=== PATIENT | female | born 1990 | race Caucasian/White ===

== ENCOUNTER → 2016-10-17 | Outpatient (REF) | payer OTHER | LOC: M LAB REF 16:19 | PROVIDERS: ATTEND Physician Assistant | DX: R10.30 Lower abdominal pain, unspecified (principal) ==

== ENCOUNTER → 2016-12-11 | Outpatient (REF) | payer OTHER ==
[2016-12-11 12:24] LABS: ALBUMIN 4.2 GM/DL (3.2-5.2); ALBUMIN/GLOBULIN RATIO 1.14 (1.00-1.93); ALKALINE PHOSPHATASE 88 U/L (45-117); ALT/SGPT 35 U/L (12-78); ANION GAP 8 MEQ/L (8-16); AST/SGOT 32 U/L (15-37); BILIRUBIN,TOTAL 0.5 MG/DL (0.2-1.0); BLOOD UREA NITROGEN 13 MG/DL (7-18); CALCIUM LEVEL 8.9 MG/DL (8.5-10.1); CARBON DIOXIDE LEVEL 27 MEQ/L (21-32); CHLORIDE LEVEL 104 MEQ/L (98-107); CREATININE FOR GFR 0.77 MG/DL (0.55-1.02); GLOMERULAR FILTRATION RATE > 60.0 (>60); GLUCOSE, FASTING 84 MG/DL (70-105); HCG, SERUM QUANTITATIVE < 1.0 MIU/ML; POTASSIUM SERUM 4.1 MEQ/L (3.5-5.1); SODIUM LEVEL 139 MEQ/L (136-145); TOTAL PROTEIN 7.9 GM/DL (6.4-8.2)
== END ==
LOC: M SFHCPLAZ 09:50
PROVIDERS: ATTEND Family Medicine
DX: R10.30 Lower abdominal pain, unspecified (principal)

== ENCOUNTER → 2017-04-13 | Outpatient (REF) | payer OTHER | LOC: M SFHCPLAZ 13:31 | PROVIDERS: ATTEND Family Medicine | DX: N91.2 Amenorrhea, unspecified (principal) ==

== ENCOUNTER → 2017-04-15 | Outpatient (REF) | payer OTHER | LOC: M SFHCPLAZ 08:59 | PROVIDERS: ATTEND Family Medicine | DX: N91.2 Amenorrhea, unspecified (principal) ==

== ENCOUNTER → 2017-06-05 | Outpatient (REF) | payer OTHER ==
[2017-06-05 16:08] LABS: ESTRADIOL 336.4 PG/ML; LUTEINIZING HORMONE 13.7 mIU/mL; PROLACTIN 27.3 NG/ML
[2017-06-05 16:09] LABS: FOLLICLE STIMULATING HORMONE 3.5 mIU/mL
[2017-06-05 16:16] LABS: FREE T4 1.14 NG/DL (0.76-1.46); HCG, SERUM QUANTITATIVE < 1.0 MIU/ML
== END ==
LOC: M SFHCPLAZ 13:07
PROVIDERS: ATTEND Family Medicine
DX: N91.4 Secondary oligomenorrhea (principal)

== ENCOUNTER → 2017-10-08 | Outpatient (REF) | payer OTHER ==
[2017-10-08 12:53] LABS: INFLUENZA A AMPLIFICATION NEGATIVE (NEGATIVE); INFLUENZA B AMPLIFICATION NEGATIVE (NEGATIVE)
== END ==
LOC: M LAB REF 11:39
DX: J11.1 Influenza due to unidentified influenza virus with other respiratory manifestations (principal)

== ENCOUNTER → 2017-12-08 | Outpatient (REF) | payer OTHER ==
[2017-12-08 14:32] LABS: PROGESTERONE 0.5 NG/ML
[2017-12-08 14:33] LABS: FOLLICLE STIMULATING HORMONE 7.8 mIU/mL; LUTEINIZING HORMONE 8.6 mIU/mL
== END ==
LOC: M LABDRAWP 13:34
DX: N93.8 Other specified abnormal uterine and vaginal bleeding (principal)

== ENCOUNTER → 2017-12-11 | Outpatient (CLI) | payer OTHER ==
[~2017-12-11] MED LIST: ISOVUE-370 76% 100ML VIAL (Q9967) As Ordered
== END ==
LOC: M RADPRO 11:00
DX: N97.9 Female infertility, unspecified (principal)
CPT/HCPCS: 58340

== ENCOUNTER → 2018-03-29 | Outpatient (REF) | payer OTHER ==
[2018-03-29 15:58] LABS: HCG, SERUM QUANTITATIVE 601 MIU/ML
== END ==
LOC: M LAB REF 13:12
DX: Z32.01 Encounter for pregnancy test, result positive (principal)

== ENCOUNTER → 2018-03-31 | Outpatient (REF) | payer OTHER ==
[2018-03-31 13:58] LABS: HCG, SERUM QUANTITATIVE 1238 MIU/ML
== END ==
LOC: M LABDRAW1 12:03
DX: Z32.01 Encounter for pregnancy test, result positive (principal)

== ENCOUNTER → 2018-04-30 | Outpatient (REF) | payer OTHER ==
[2018-04-30 12:09] LABS: BASO % 0.4 % (0.0-1.0); EOS % 0.4 % (0.0-3.0); HEMATOCRIT 37.3 % (36.0-47.0); HEMOGLOBIN 12.8 g/dl (12.0-15.5); IMMATURE GRANULOCYTE % 0.7 % (0-3.0); LYMPH # 1.7 10^3/uL (1.5-6.5); LYMPH % 21.7 % (24.0-44.0); MEAN CORPUSCULAR HEMOGLOBIN 30.4 pg (27.0-33.0); MEAN CORPUSCULAR HGB CONC 34.3 g/dl (32.0-36.5); MEAN CORPUSCULAR VOLUME 88.6 fl (80.0-96.0); MONO # 0.8 10^3/uL (0.0-0.8); MONO % 9.8 % (0.0-5.0); NEUTROPHILS # 5.1 10^3/uL (1.8-7.7); PLATELET COUNT, AUTOMATED 329 10^3/uL (150-450); RED BLOOD COUNT 4.21 10^6/uL (4.00-5.40); RED CELL DISTRIBUTION WIDTH 12.3 % (11.5-14.5); WHITE BLOOD COUNT 7.6 10^3/uL (4.0-10.0)
[2018-04-30 13:56] LABS: HEPATITIS C VIRUS ABY INDEX 0.1 INDEX (<0.8)
[2018-04-30 13:56] LABS: HBsAg Prenatal NEGATIVE (NEGATIVE); HIV 1&2 SCREEN CENTAUR NEGATIVE (NEGATIVE); RUBELLA IgG QUALITATIVE IMMUNE (IMMUNE)
[2018-04-30 15:10] LABS: CHLAMYDIA DNA AMPLIFICATION NEGATIVE (NEGATIVE); GC DNA AMPLIFICATION NEGATIVE (NEGATIVE)
== END ==
LOC: M LABDRAWP 11:43
DX: Z34.81 Encounter for supervision of other normal pregnancy, first trimester (principal); Z3A.09 9 weeks gestation of pregnancy; Z36.89 Encounter for other specified antenatal screening

== ENCOUNTER → 2018-11-02 | Outpatient (REF) | payer OTHER, BC | LOC: M LAB REF 17:13 | PROVIDERS: ATTEND Advanced Practice Midwife | DX: Z34.83 Encounter for supervision of other normal pregnancy, third trimester (principal); Z3A.00 Weeks of gestation of pregnancy not specified ==

== ENCOUNTER 2018-12-01 12:05 | Inpatient (IN) | payer BC ==
[2018-12-01] VITALS (41 sets, daily range): BP systolic 111–162; BP diastolic 59–97
[~2018-12-01] VITALS: Ht 157.5 cm; Wt 82.6 kg
[2018-12-01] MEDS ORDERED: LR 1,000 ML IV SCH (12:20)
[2018-12-01] MEDS ORDERED: OXYTOCIN DRIP 30 UNITS in APPROPRIATE DILUENT 1 EA IV SCH ×2 (12:30→22:43)
[2018-12-01] MEDS ORDERED: PRENTAB77 PO (13:09)
--- NOTE | 2018-12-01 14:02 | HPE ---
DATE OF ADMISSION: 12/01/2018 HISTORY: Larisa is a 28-year-old, 2, para 0-0-1-0, 40-1/7 weeks gestation, with an expected date of confinement (EDC) of 11/30/2018 based on last menstrual period and confirmed by first trimester ultrasound. She presents to labor and delivery today for induction of labor per consult with Dr. Renetta Prather. She does deny any regular painful contractions. She has noted some scant bloody show. Denies leakage of fluid and the fetus has been active. Her care was initiated in the first trimester at [facility]. course was complicated by an anatomy ultrasound done here locally that demonstrated potential for esophageal anomaly. She was seen at [facility] for a consult 07/19/2018 and underwent ultrasound that demonstrated no esophageal abnormality and no polyhydramnios. No further recommendations were advised. OBSTETRICAL HISTORY: March 2017, 6 week spontaneous miscarriage. OBSTETRIC LABS: O+. Antibody screen negative. Rubella immune. VDRL nonreactive. Urine culture with no growth. Hepatitis B surface antigen negative. HIV negative. Hepatitis C antibody nonreactive. Gonorrhea and chlamydia negative. She did decline genetic serum screening labs. Gestational diabetic screening normal at 138. Her GBS is negative. PAST MEDICAL HISTORY: Seasonal allergies. Abnormal Pap smear. Childhood varicella. SURGERIES: None. FAMILY HISTORY: Multiple sclerosis and skin cancer. SOCIAL HISTORY: The patient is . Her is at bedside and supportive. She is a nonsmoker. Denies alcohol and drug use. There is no history of sexually transmitted infections. She denies history of abuse - physical, sexual and emotional. ALLERGIES: No known drug allergies. CURRENT MEDICATIONS: vitamin. OBJECTIVE: Temperature 98.3, pulse 90, respiration 18 and BP 137/75. She is alert and oriented times three, in no apparent distress. She is smiling and talkative. The heart rate is 135 with moderate variability, positive accelerations, no decelerations. There is no pattern of regular contractions. Her abdomen is gravid, cephalic presentation. Estimated weight 7-1/2 pounds. Sterile vaginal exam is 3 cm dilated, 80% effaced, -2 station, mid position, soft, with positive bloody show. ASSESSMENT: Intrauterine at 40-1/7 weeks. heart rate category one. PLAN: Admit the patient to labor and delivery. Routine labs. Out of bed ad norma. Clear liquid diet at this time. Start IV Pitocin for labor induction. I did review risks, benefits and alternatives with the patient and her . All of their questions have been answered. She has been verbally consented for emergency surgery and blood products as needed. I do anticipate and active labor and a spontaneous vaginal delivery. MTDD
[2018-12-01 14:03] LABS: HEMATOCRIT 38.1 % (36.0-47.0); MEAN CORPUSCULAR HEMOGLOBIN 30.7 pg (27.0-33.0); MEAN CORPUSCULAR HGB CONC 34.1 g/dl (32.0-36.5); MEAN CORPUSCULAR VOLUME 89.9 fl (80.0-96.0); PLATELET COUNT, AUTOMATED 288 10^3/uL (150-450); RED BLOOD COUNT 4.24 10^6/uL (4.00-5.40); WHITE BLOOD COUNT 10.7 10^3/uL (4.0-10.0)
[2018-12-01] MEDS ORDERED: LR 1,000 ML IV ONE (16:45)
[2018-12-01] MEDS ORDERED: FENTANYL 2MCG/ML ROPIVACAINE 0.2% IN 0.9% NACL 100ML IVBAG As Ordered ONE (16:45)
[2018-12-01] MEDS ORDERED: EPIDURAL/PCA KEYS XX PRN (18:45)
[2018-12-01] MEDS ORDERED: EPIDURAL COMMENT XX SCH (18:45)
[2018-12-01] MEDS ORDERED: NALOXONE INJ 0.4 MG/1 ML VIAL (J2310) IV PRN (18:45)
[2018-12-01] MEDS ORDERED: FENTANYL/ROPIVACAINE/NACL BAG 100 ML EPIDURAL SCH (18:45)
[2018-12-01] MEDS ORDERED: diphenhydrAMINE INJ 50MG/ML VIAL (J1200) IV PRN (18:45)
[2018-12-01] MEDS ORDERED: REFRIGERATOR IV KEYS XX PRN (18:45)
[2018-12-01] MEDS ORDERED: ONDANSETRON 4MG/2ML VIAL (J2405) IV PRN (18:45)
[2018-12-01] MEDS ORDERED: ePHEDrine SULFATE 25 MG/5 ML(5MG/ML) SYRINGE IV PRN (18:45)
[2018-12-01] MEDS ORDERED: LACTATED RINGER'S 1000 ML IV PRN (18:45)
[2018-12-01] MEDS ORDERED: DIBUCAINE 1% OINTMENT 30GM TOP PRN (22:45)
[2018-12-01] MEDS ORDERED: METHYLERGONOVINE MALEATE 0.2 MG TAB PO PRN (22:45)
[2018-12-01] MEDS ORDERED: RHOGAM 300 MCG (1500 IU) INJ (J2790) IM SCH (22:45)
[2018-12-01] MEDS ORDERED: MEASLES,MUMPS,RUBELLA VACCINE INJ (MMR-II) (90707) SC SCH (22:45)
[2018-12-01] MEDS ORDERED: ANUSOL HC CREAM 30GM TOP PRN (22:45)
--- NOTE | 2018-12-01 23:15 | DN ---
DATE OF DELIVERY: 12/01/2018 Larisa is a 28-year-old 2, para 1-0-1-1 now who was admitted to labor and delivery for induction of labor. IV Pitocin was used and labor did ensue. She utilized an epidural for labor coping. She reached full dilation at 1933 hours. She had assisted rupture of membranes for a large amount of clear odorless fluid at 2034 hours. She pushed to a normal spontaneous vaginal delivery following an hour of passive descent to a live female infant in occiput anterior (OA) position with restitution to left occiput transverse (LOT) position at 2158 hours. There was bilateral compound hands. The shoulders delivered spontaneously and the corpus immediately followed. was placed on maternal abdomen crying and active. Her mouth and nares were bulb suctioned. The cord was clamped times two once pulsations ceased and cut by the father of the baby under my direction. Spontaneous expulsion of an intact placenta with three-vessel cord by Ann mechanism was at 2203 hours. Uterine hemostasis achieved with IV Pitocin rapid infusion and uterine fundal massage. Estimated blood loss 300 mL. Perineum and vagina inspected, noted to have bilateral sulcus lacerations as well as a second-degree midline laceration. The lacerations were repaired under epidural anesthesia in the usual fashion. Girard female weighed 6 pounds 2 ounces, 2770 grams, eight and nine. Mom is going to breastfeed her daughter and the family have named Myla. At the close of delivery lap counts, needle counts and instrument counts were correct and verified.
[2018-12-01] MEDS: ACETAMINOPHEN 500 MG TAB PO PRN (23:30)
[2018-12-01] MEDS: IBUPROFEN 800 MG TAB PO PRN (23:30)
[2018-12-02] MEDS: ACETAMINOPHEN 500 MG TAB PO PRN ×4 (00:25→20:26)
[2018-12-02] MEDS: IBUPROFEN 800 MG TAB PO PRN ×3 (00:25→16:53)
[2018-12-02 01:03] VITALS: BP 132/65
[2018-12-02 06:22] VITALS: BP 119/72
[2018-12-02] MEDS: DOCUSATE SODIUM 100 MG CAP PO SCH ×2 (07:40→20:26)
[2018-12-02] MEDS: PRENATAL VITAMINS CHEWABLE TABLET PO SCH (07:40)
[2018-12-02 09:48] VITALS: BP 132/48
[2018-12-02 18:00] VITALS: BP 132/64
[2018-12-03] MEDS: IBUPROFEN 800 MG TAB PO PRN (04:58)
[2018-12-03 06:00] VITALS: BP 123/60
[2018-12-03] MEDS: PRENATAL VITAMINS CHEWABLE TABLET PO SCH (08:36)
[2018-12-03] MEDS: DOCUSATE SODIUM 100 MG CAP PO SCH (08:36)
[2018-12-03] MEDS ORDERED: COLA100C5 PO (11:09)
[2018-12-03] MEDS ORDERED: ACET-683 PO (11:09)
[2018-12-03] MEDS ORDERED: IBUP-1022 PO (11:09)
== END 2018-12-03 12:25 | disposition home or self-care (01) | DRG 560 ==
LOC: M LDI 12:05 → M OBS 12-02 01:03
PROVIDERS: ADMIT Advanced Practice Midwife; ATTEND Advanced Practice Midwife
PROC: 10E0XZZ Delivery of Products of Conception, External Approach (ICD-10-PCS; principal; 2018-12-01)
PROC: 0KQM0ZZ Repair Perineum Muscle, Open Approach (ICD-10-PCS; 2018-12-01)
PROC: 10907ZC Drainage of Amniotic Fluid, Therapeutic from Products of Conception, Via Natural or Artificial Opening (ICD-10-PCS; 2018-12-01)
DX: O48.0 Post-term pregnancy (principal); O32.6XX0 Maternal care for compound presentation, not applicable or unspecified; Z37.0 Single live birth; Z3A.40 40 weeks gestation of pregnancy; O70.1 Second degree perineal laceration during delivery

== ENCOUNTER → 2019-03-08 | Outpatient (REF) | payer BC ==
[~2019-03-08] MED LIST changes: +ACET-683 PO; +COLA100C5 PO; +IBUP-1022 PO; -ISOVUE-370 76% 100ML VIAL (Q9967) As Ordered; +PRENTAB77 PO
== END ==
LOC: M LAB REF 17:07
PROVIDERS: ATTEND Advanced Practice Midwife
DX: Z12.4 Encounter for screening for malignant neoplasm of cervix (principal)

== ENCOUNTER → 2020-04-24 | Outpatient (REF) | payer BC ==
[2020-04-24 16:30] LABS: BASO % 0.4 % (0.0-1.0); EOS % 0.5 % (0.0-3.0); HEMATOCRIT 41.8 % (36.0-47.0); HEMOGLOBIN 14.1 g/dl (12.0-15.5); LYMPH # 1.9 10^3/uL (1.5-5.0); LYMPH % 23.2 % (24.0-44.0); MEAN CORPUSCULAR HEMOGLOBIN 30.3 pg (27.0-33.0); MEAN CORPUSCULAR HGB CONC 33.7 g/dl (32.0-36.5); MEAN CORPUSCULAR VOLUME 89.9 fl (80.0-96.0); MONO # 0.7 10^3/uL (0.0-0.8); NEUTROPHILS # 5.5 10^3/uL (1.5-8.5); NEUTROPHILS % 67.5 % (36.0-66.0); PLATELET COUNT, AUTOMATED 358 10^3/uL (150-450); RED BLOOD COUNT 4.65 10^6/uL (4.00-5.40); WHITE BLOOD COUNT 8.1 10^3/uL (4.0-10.0)
[2020-04-24 17:44] LABS: HEPATITIS C VIRUS ABY INDEX 0.1 INDEX (<0.8); HIV 1&2 SCREEN CENTAUR NEGATIVE (NEGATIVE)
== END ==
LOC: M PLALAB 09:55
PROVIDERS: ATTEND Advanced Practice Midwife
DX: Z34.91 Encounter for supervision of normal pregnancy, unspecified, first trimester (principal); Z3A.00 Weeks of gestation of pregnancy not specified

== ENCOUNTER → 2020-05-08 | Outpatient (REF) | payer BC, OTHER | LOC: M SFHCWAGY 13:23 | PROVIDERS: ATTEND Advanced Practice Midwife | DX: Z34.81 Encounter for supervision of other normal pregnancy, first trimester (principal); Z3A.00 Weeks of gestation of pregnancy not specified ==

== ENCOUNTER → 2020-07-03 | Outpatient (CLI) | payer BC ==
--- NOTE | 2020-07-03 11:03 | REP ---
INDICATION: ANATOMY COMPARISON: None. TECHNIQUE: Transabdominal obstetrical ultrasound with color Doppler evaluation. FINDINGS: Examination demonstrates a single live intrauterine in cephalic presentation. motion is identified by technologist. Placenta is noted posterior and grade 1 without evidence for placenta previa or abruption. Amniotic fluid volume is normal. Cervix measures 3.1 cm in length and appears closed.. Gestational age by current measurements 18 weeks 3 days with MARISSA 12/01/2020. FHR equals 155 beats per minute. BPD: 4.0 cm eighteen weeks 1 day HC: 15.6 cm 18 weeks 4 days AC: 14.1 cm 19 weeks 3 days FL: 2.6 cm 17 weeks 6 days HL: 2.6 cm 18 weeks 2 days HC/AC: 1.11 Estimated weight 252 grams (63rdpercentile based on age by current measurements). Anatomical assessment demonstrates normal structures including cranium, choroid plexus, cavum, cerebellum/posterior fossa, facial features, lungs, diaphragm, stomach, cord insertion/three-vessel cord, kidneys/bladder, spine, and extremities. IMPRESSION: 1. Single live intrauterine in cephalic presentation demonstrating appropriate estimated weight compared to current measurement. 2. Limited evaluation of the heart/ventricular outflow tracts. Remainder of the anatomical assessment is complete and normal. <Electronically signed by Judson Mcguire > 07/03/20 1100
== END ==
LOC: M WHC 09:14
PROVIDERS: ATTEND Advanced Practice Midwife
DX: Z34.92 Encounter for supervision of normal pregnancy, unspecified, second trimester (principal); Z36.89 Encounter for other specified antenatal screening; Z3A.18 18 weeks gestation of pregnancy

== ENCOUNTER → 2020-08-07 | Outpatient (CLI) | payer BC ==
--- NOTE | 2020-08-07 09:07 | REP ---
INDICATION: FOLLOW UP ANATOMY COMPARISON: 07/03/2020 TECHNIQUE: Transabdominal obstetrical ultrasound with color Doppler evaluation. FINDINGS: Examination demonstrates a single live intrauterine in cephalic presentation. motion is identified by technologist. Placenta is noted posterior and grade 1 without evidence for placenta previa or abruption. Amniotic fluid volume is normal. Cervix measures 3.7 cm in length and appears closed.. Gestational age by LMP 24 weeks 5 days with MARISSA 11/22/2020. Gestational age by current measurements 23 weeks 5 days with MARISSA 11/29/2020. FHR equals 156 beats per minute. BPD: 5.8 cm 23 weeks 6 days HC: 21.4 cm 23 weeks 3 days AC: 19.4 cm 24 weeks 1 day FL: 4.1 cm 23 weeks 3 days HL: 3.9 cm 23 weeks 5 days HC/AC: 1.10 Estimated weight 628 grams (11thpercentile). Anatomical assessment demonstrates normal structures including cranium, four-chamber heart/ventricular outflow tracts, diaphragm, stomach, three-vessel cord, and kidneys/bladder. IMPRESSION: Single live intrauterine in cephalic presentation demonstrating appropriate interval growth. In conjunction with prior examination anatomical assessment is complete and normal. <Electronically signed by Judson Mcguire > 08/07/20 [id number]
== END ==
LOC: M WHC 08:19
PROVIDERS: ATTEND Advanced Practice Midwife
DX: Z34.82 Encounter for supervision of other normal pregnancy, second trimester (principal)

== ENCOUNTER → 2020-08-22 | Outpatient (REF) | payer BC ==
[2020-08-22 10:30] LABS: HEMATOCRIT 37.5 % (36.0-47.0); HEMOGLOBIN 12.1 g/dl (12.0-15.5); MEAN CORPUSCULAR HEMOGLOBIN 29.5 pg (27.0-33.0); MEAN CORPUSCULAR HGB CONC 32.3 g/dl (32.0-36.5); MEAN CORPUSCULAR VOLUME 91.5 fl (80.0-96.0); PLATELET COUNT, AUTOMATED 277 10^3/uL (150-450); WHITE BLOOD COUNT 9.6 10^3/uL (4.0-10.0)
== END ==
LOC: M PLALAB 08:13
PROVIDERS: ATTEND Advanced Practice Midwife
DX: Z34.82 Encounter for supervision of other normal pregnancy, second trimester (principal)

== ENCOUNTER → 2020-09-04 | Outpatient (CLI) | payer BC ==
--- NOTE | 2020-09-04 08:46 | REP ---
INDICATION: GROWTH COMPARISON: 08/07/2020 TECHNIQUE: Transabdominal obstetrical ultrasound with color Doppler evaluation. FINDINGS: Examination demonstrates a single live intrauterine in cephalic presentation. motion is identified by technologist. Placenta is noted posterior and grade 1 without evidence for placenta previa or abruption. Amniotic fluid volume is normal. Cervix measures 3.0 cm in length and appears closed.. Gestational age by LMP 28 weeks 5 days with MARISSA 11/22/2020. Gestational age by current measurements 27 weeks 5 days with MARISSA 11/29/2020. FHR equals 138 beats per minute. BPD: 7.1 cm 28 weeks 4 days HC: 26.2 cm 20 weeks 3 days AC: 23.5 cm 27 weeks 6 days FL: 5.0 cm 26 weeks 6 days HL: 4.5 cm is 26 weeks 5 days HC/AC: 1.11 Estimated weight 1099 grams (less than 3rdpercentile). IMPRESSION: Single live advanced gestation in cephalic presentation. Estimated weight for age is less than 3rd percentile. <Electronically signed by Judson Mcguire > 09/04/20 0844
== END ==
LOC: M WHC 07:52
PROVIDERS: ATTEND Obstetrics & Gynecology
DX: O26.849 Uterine size-date discrepancy, unspecified trimester (principal)

== ENCOUNTER → 2020-09-12 | Outpatient (CLI) | payer BC ==
--- NOTE | 2020-09-12 11:38 | REP ---
INDICATION: IUGR, BPP W/CORD DOPPLERS. Poor growth. COMPARISON: September 04, 2020.. TECHNIQUE: Transabdominal obstetric sonography. FINDINGS: Limited Ob sonography is performed. Viable single intrauterine gestation is seen in the cephalic lie. The placenta is posterior grade 1 without evidence of previa. Amniotic fluid is subjectively normal. TARAH is normal at 12.6 cm. heart rate is recorded at 130 beats per minute. Biophysical profile score is 8 out of a possible 8. SD ratio in the umbilical cord artery by Doppler is normal at 3.79. Closed cervical length is measured transabdominally at 3.5 cm. IMPRESSION: Viable single intrauterine gestation. Limited obstetric sonography as above. Normal biophysical profile. <Electronically signed by Bijan Schultz > 09/12/20 [id number]
== END ==
LOC: M WHC 10:17
PROVIDERS: ATTEND Advanced Practice Midwife
DX: O36.5930 Maternal care for other known or suspected poor fetal growth, third trimester, not applicable or unspecified (principal); Z3A.00 Weeks of gestation of pregnancy not specified

== ENCOUNTER → 2020-09-18 | Outpatient (CLI) | payer BC ==
--- NOTE | 2020-09-18 13:36 | REP ---
INDICATION: GROWTH/BPP/CORD DOPPLERS COMPARISON: 09/12/2020 TECHNIQUE: Transabdominal obstetrical ultrasound with color Doppler evaluation. FINDINGS: Examination demonstrates a single live intrauterine in cephalic presentation. motion is identified by technologist. Placenta is noted posterior and grade 1 without evidence for placenta previa or abruption. Amniotic fluid volume is normal. Cervix measures 3.1 cm in length and appears closed.. Gestational age by LMP 30 weeks 5 days with MARISSA 11/22/2020. Gestational age by current measurements 20 on weeks 1 day with MARISSA 12/03/2020. FHR equals 150 beats per minute. BPD: 7.2 cm 28 weeks 6 days HC: 27.2 cm 29 weeks 5 days AC: 25.5 cm 29 weeks 5 days FL: 5.4 cm 28 weeks 5 days HL: 4.9 cm 28 weeks 3 days HC/AC: 1.07 Estimated weight 1371 grams (less than 3rd percentile). TARAH: 14.2 cm Biophysical profile score: 8/8 Umbilical artery 1 SD ratio: 2.97 (1.92-4.02) Umbilical artery 2 SD ratio: 3.55 IMPRESSION: Single live intrauterine in cephalic presentation. Estimated weight is less than expected. Biophysical profile score and amniotic fluid index are normal. <Electronically signed by Judson Mcguire > 09/18/20 [id number]
== END ==
LOC: M WHC 08:25
PROVIDERS: ATTEND Advanced Practice Midwife
DX: O36.5930 Maternal care for other known or suspected poor fetal growth, third trimester, not applicable or unspecified (principal); Z3A.30 30 weeks gestation of pregnancy

== ENCOUNTER → 2020-10-05 | Outpatient (CLI) | payer BC | LOC: M WHC 08:32 | PROVIDERS: ATTEND Obstetrics & Gynecology | DX: O26.893 Other specified pregnancy related conditions, third trimester (principal); Z3A.33 33 weeks gestation of pregnancy ==

== ENCOUNTER → 2020-10-22 | Outpatient (REF) | payer BC | LOC: M SFHCWAGY 13:54 | PROVIDERS: ATTEND Obstetrics & Gynecology | DX: O36.5930 Maternal care for other known or suspected poor fetal growth, third trimester, not applicable or unspecified (principal) ==

== ENCOUNTER 2020-11-15 18:17 | Inpatient (IN) | payer BC ==
[~2020-11-15] VITALS: Ht 157.5 cm; Wt 80.4 kg
[2020-11-15 18:49] VITALS: BP 108/64
[2020-11-15 20:05] LABS: HEMATOCRIT 36.8 % (36.0-47.0); HEMOGLOBIN 12.3 g/dl (12.0-15.5); MEAN CORPUSCULAR HEMOGLOBIN 29.6 pg (27.0-33.0); MEAN CORPUSCULAR HGB CONC 33.4 g/dl (32.0-36.5); MEAN CORPUSCULAR VOLUME 88.7 fl (80.0-96.0); PLATELET COUNT, AUTOMATED 257 10^3/uL (150-450); RED BLOOD COUNT 4.15 10^6/uL (4.00-5.40); WHITE BLOOD COUNT 8.8 10^3/uL (4.0-10.0)
[2020-11-15 20:17] VITALS: BP 119/71
[2020-11-15] MEDS ORDERED: LACTATED RINGER'S 1000 ML IV STA (21:14)
[2020-11-15] MEDS ORDERED: LR 1,000 ML IV SCH (21:14)
[2020-11-15] MEDS ORDERED: miSOPROStol 50MCG 1/2 TABLET PV ONE (21:15)
[2020-11-15] MEDS ORDERED: BUTORPHANOL 2 MG/ML INJ (J0595) IV PRN (21:15)
[2020-11-15] MEDS ORDERED: PROMETHAZINE INJ 25 MG/ML VIAL (J2550) IV PRN (21:15)
[2020-11-15 21:30] VITALS: BP 116/71
--- NOTE | 2020-11-15 21:40 | HPEPDOC ---
Obstetrical History & Physical General Date of Admission Nov 15, 2020 at 18:17 History of Present Illness Larisa is a 30yo with SIUP at 39w0d by lmp presenting for scheduled elective IOL at term. Good FM. No VB/LOF/regular ctx. Chief Complaint: Induction of labor Information Provided By: Patient Care Care: Good Care Dating Final EDC: Nov 22, 2020 Final EDC by: LMP Antepartum Course Diagnos(e)s Was monitored for growth restriction <3%ile for a time, but subsequent growth scans resolved the IUGR and most recently on 10/23 was 26%ile Past Medical History Past Obstetrical History : Past Obstetrical History: Multigravida (11/2018 at 40wk 6lb2oz F, 2018 sab) Past Medical History Medical History benign. hospitalized in 1999 for pneumonia/mono Surgical History: [place] teeth Family History Significant Family History: Cancer (breast cancer paternal GM, melanoma father), Hypertension (father), Other (mother has MS) Social History Marital Status: Family situation: Spouse/partner home Psychosocial History: No pertinent psych hx * Smoker: non-smoker Alcohol: Denies Drugs: denies Imunizations Tdap status: current Influenza Status: current Allergies Coded Allergies: No Known Allergies (Verified , 03/06/09) Medications Scheduled Docusate Sodium (Colace) 100 Mg Capsule, 100 MG PO BID Pnv,Calcium 72/Iron/Folic Acid ( Plus Tablet) 1 Each Tablet, 1 TAB PO DA EMILIANO Physical Examination Physical Examination GENERAL: Alert and oriented times three. ABDOMEN: Gravid and non-tender to touch. FETUS: Is vertex (VTX) by sterile vaginal examination (SVE) EXTREMITIES: No edema BLE Vital Signs/I&O Vital Signs Date Time Temp Pulse Resp B/P (MAP) Pulse Ox O2 Delivery O2 Flow Rate FiO2 11/15/20 20:17 98.4 80 16 119/71 (87) Laboratory Data 24H LABS Laboratory Tests 2 11/15/20 18:29: Serology Scanned Report Hepatitis B Testing 11/15/20 19:48: Nucleated Red Blood Cells % (auto) 0.0, Syphilis Serology NONREACTIVE CBC/BMP Laboratory Tests 11/15/20 19:48 Pertinent Laboratoy Data Blood Type: O+ RBC Antibody Screen: Negative HIV: Negative Hepatitis B: Negative Hepatitis C: Negative Rapid Plasma Reagin: Nonreactive Rubella: Immune Chlamydia/Gonorrhea: Negative Group B Streptococcus: Negative Glucose Tolerance Test: 98 Anatomy Ultrasound Ultrasound Date: Jul 03, 2020 Placenta Location: Posterior Normal Anatomy: Yes Placenta Previa: No Other Ultrasounds 08/07/20 missing views obtained complete and wnl 11%ile. 10/23: 26%ile Steroid Therapy Steroid Therapy: No Vaginal Examination Dilation: 2cm Effacement: other (thick) Station: -2 Cervical Consistency: Medium Cervical Position: Middle Presentation: Cephalic presentation Assessment Heart Rate (FHR): 150 Variability: Moderate Accelerations: Positive Decelerations: None Tocometer Contractions: Yes Frequency: irregular Strength: palpated as mild Assessment/Plan Assessment Larisa is a 30yo with SIUP at 39w0d by lmp presenting for scheduled elective IOL at term. Vitals wnl, Cat I FHRT. Cephalic by SCE. 2/thick/-2. Love cervical bulb placed with 40cc NS and 50mcg PV cytotec placed. GBS neg. PMhx and PNC significant for: Was monitored for growth restriction <3%ile for a time, but subsequent growth scans resolved the IUGR and most recently on 10/23 was 26%ile Plan Admit and orient. Loading Machine Operator and consent. Diet: regular until regular/painful ctx then clear liquids Group B Streptococcus (GBS) negative Labs and intravenous (IV) per unit protocol. Counseled on love bulb, cytotec, Pitocin and induction of labor (IOL). Lactated Ringers (LR): Bolus 800 mL, then at 125 mL/hr in anticipation of epidural (saline lock prior). Anticipate normal spontaneous delivery () IV stadol/phenergan in latent labor if desired, epidural in active labor if desired MD Mihaela Gibson Katrina D MD Nov 15, 2020 21:23
[2020-11-15 23:35] VITALS: BP 103/53
[2020-11-16] VITALS (31 sets, daily range): BP systolic 87–137; BP diastolic 45–77
[2020-11-16] MEDS ORDERED: miSOPROStol 50MCG 1/2 TABLET PO SCH (01:00)
[2020-11-16] MEDS ORDERED: FENTANYL 2MCG/ML ROPIVACAINE 0.2% IN 0.9% NACL 100ML IVBAG As Ordered ONE (02:00)
[2020-11-16] MEDS ORDERED: ePHEDrine SULFATE 25 MG/5 ML(5MG/ML) SYRINGE As Ordered ONE (03:12)
[2020-11-16] MEDS ORDERED: FENTANYL/ROPIVACAINE/NACL BAG 100 ML EPIDURAL SCH (03:15)
[2020-11-16] MEDS ORDERED: ONDANSETRON 4MG/2ML VIAL IV PRN (03:15)
[2020-11-16] MEDS ORDERED: diphenhydrAMINE 50MG/ML VIAL (J1200) IV PRN (03:15)
[2020-11-16] MEDS ORDERED: ePHEDrine SULFATE 25 MG/5 ML(5MG/ML) SYRINGE IV PRN (03:15)
[2020-11-16] MEDS ORDERED: EPIDURAL/PCA KEYS XX PRN (03:15)
[2020-11-16] MEDS ORDERED: LACTATED RINGER'S 1000 ML IV PRN (03:15)
[2020-11-16] MEDS ORDERED: EPIDURAL COMMENT XX SCH (03:15)
[2020-11-16] MEDS ORDERED: REFRIGERATOR IV KEYS XX PRN (03:15)
[2020-11-16] MEDS ORDERED: NALOXONE INJ 0.4MG/1ML VIAL (J2310 PER 1MG) IV PRN (03:15)
[2020-11-16] MEDS ORDERED: OXYTOCIN DRIP 30 UNITS in IV 1 EA IV SCH ×2 (04:15→07:41)
[2020-11-16] MEDS ORDERED: OXYTOCIN 30 UNITS IN 0.9% NaCl 500ML IV BAG (J2590) As Ordered ONE (04:20)
--- NOTE | 2020-11-16 05:24 | IPNPDOC ---
Text Note Date of Service The patient was seen on 11/16/20. NOTE Intrapartum Note Pt doing well, pain controlled with epidural. Vitals wnl, afebrile SCE: /-2, AROM with copious clear fluid Cat I FHRT with bl 140, +accels, -decels, mod guanaco [place]: ctx q2-3min Plan to titrate pitocin to adequate ctx pattern Continue to closely monitor Plan to recheck in 2-4hr or earlier as indicated Safe to proceed Carole Chairez MD VS,Ashley, I+O VS, Ashley I+O Laboratory Tests 11/15/20 19:48 Vital Signs Date Time Temp Pulse Resp B/P (MAP) Pulse Ox O2 Delivery O2 Flow Rate FiO2 11/16/20 04:12 88 95/45 (62) 11/15/20 23:35 98.8 16 aCrole Chairez MD Nov 16, 2020 05:24
[2020-11-16] MEDS ORDERED: MEASLES,MUMPS,RUBELLA VACCINE INJ (MMR-II) (90707) SC SCH (07:45)
[2020-11-16] MEDS ORDERED: IBUPROFEN 600MG TAB PO PRN (07:45)
[2020-11-16] MEDS ORDERED: ACETAMINOPHEN 500 MG TAB PO PRN (07:45)
[2020-11-16] MEDS ORDERED: DIBUCAINE 1% OINTMENT 30GM TOP PRN (07:45)
[2020-11-16] MEDS ORDERED: RHOGAM 300 MCG (1500 IU) INJ (J2790) IM SCH (07:45)
--- NOTE | 2020-11-16 07:54 | DNPDOC ---
[facility] Delivery Note Delivery Note DATE OF DELIVERY: 16 November 2020 PREDELIVERY DIAGNOSIS: 39w1d gestation and labor. POST DELIVERY DIAGNOSIS: Delivered. PROCEDURE: Spontaneous vaginal delivery WAVE GUIDE ASSEMBLER: Dr. Carole Chairez MD ANESTHESIA: epidural ESTIMATED BLOOD LOSS: 200 mL. FINDINGS: 6 pound 12 ounce (3050g) female , Score 8/9 DELIVERY SUMMARY: Larisa is a 30yo [id number] with SIUP s/p uncomplicated at 39w1d by lmp after undergoing elective IOL, delivering at 0651 on 16 November 2020. She was initially 2/thick/-2 and received a dose of 50mcg PV cytotec with love bulb, after AROM (clear), she progressed quickly to C/C/+1 at which point she began pushing. With a few sets of pushes, head delivered OA, restituted ISAC. Right anterior shoulder delivered followed by posterior shoulder and corpus. Spontaneous cry noted, infant vigorous, cord was short and she was placed on maternal abdomen. Nose and mouth bulb suctioned. Apgars 8/9. After 2 minutes, cord was clamped x2 and cut by FOB. Cord blood collected for MBT O pos. With fundal massage and traction on the cord, placenta delivered intact with 3 vessel centrally inserted cord. More uterine massage performed, fundus then firm at u-2cm. Inspection of perineum and vagina revealed 3a laceration (she has history of prior 3mll). The capsule of the anal sphincter was reinforced with O vicryl using figure of 8s and then the remaining 2mll was repaired in routine fashion using 3-0 vicryl suture. One stitch placed for charly-urethral abrasion. Total hemostasis and excellent reapproximation was noted. Infant and mom were doing well when I left the room. All counts correct x2. MD Mihaela Gibson Katrina D MD Nov 16, 2020 07:47
[2020-11-16] MEDS: PRENATAL VITAMINS CHEWABLE TABLET PO SCH (08:11)
[2020-11-16] MEDS: IBUPROFEN 800 MG TAB PO PRN ×2 (08:12→16:16)
[2020-11-16] MEDS: ACETAMINOPHEN TAB 650MG DOSE (2X325MG) PO PRN ×2 (13:17→20:02)
[2020-11-16] MEDS: DOCUSATE SODIUM 100MG CAPSULE PO PRN (13:20)
[2020-11-17] MEDS: IBUPROFEN 800 MG TAB PO PRN (00:10)
[2020-11-17 05:46] VITALS: BP 121/75
[2020-11-17] MEDS: DOCUSATE SODIUM 100MG CAPSULE PO PRN (08:19)
[2020-11-17] MEDS: PRENATAL VITAMINS CHEWABLE TABLET PO SCH (08:19)
[2020-11-17] MEDS: ACETAMINOPHEN TAB 650MG DOSE (2X325MG) PO PRN (08:20)
[2020-11-17 18:00] VITALS: BP 136/79
== END 2020-11-17 18:55 | disposition home or self-care (01) | DRG 542 ==
LOC: M LDI 18:17 → M OBS 11-16 10:00
PROVIDERS: ADMIT Obstetrics & Gynecology; ATTEND Obstetrics & Gynecology
PROC: 3E0P7GC Introduction of Other Therapeutic Substance into Female Reproductive, Via Natural or Artificial Opening (ICD-10-PCS; 2020-11-15)
PROC: 10E0XZZ Delivery of Products of Conception, External Approach (ICD-10-PCS; principal; 2020-11-16)
PROC: 0DQR0ZZ Repair Anal Sphincter, Open Approach (ICD-10-PCS; 2020-11-16)
PROC: 0KQM0ZZ Repair Perineum Muscle, Open Approach (ICD-10-PCS; 2020-11-16)
PROC: 10907ZC Drainage of Amniotic Fluid, Therapeutic from Products of Conception, Via Natural or Artificial Opening (ICD-10-PCS; 2020-11-16)
DX: O70.21 Third degree perineal laceration during delivery, IIIa (principal); Z3A.39 39 weeks gestation of pregnancy; O70.1 Second degree perineal laceration during delivery; Z37.0 Single live birth

== ENCOUNTER → 2021-11-19 | Outpatient (REF) | payer BC | LOC: M LAB REF 16:30 | PROVIDERS: ATTEND Physician Assistant Medical | DX: R78.71 Abnormal lead level in blood (principal) ==

== ENCOUNTER → 2021-11-22 | Outpatient (REF) | payer BC | LOC: M LAB REF 23:24 | PROVIDERS: ATTEND Physician Assistant Medical | DX: Z77.011 Contact with and (suspected) exposure to lead (principal) ==

== ENCOUNTER → 2022-07-16 | Outpatient (REF) | payer BC | LOC: M PLALAB 16:26 | PROVIDERS: ATTEND Nurse Practitioner Family | DX: Z12.4 Encounter for screening for malignant neoplasm of cervix (principal) | CPT/HCPCS: 87624; G0123 ==

== ENCOUNTER → 2022-09-22 | Outpatient (CLI) | payer BC ==
[~2022-09-22] MED LIST changes: +ELDE350C PO; +MAGN200T PO
[2022-09-22 11:12] LABS: ALBUMIN 4.2 G/DL (3.2-5.2); ALKALINE PHOSPHATASE 80 U/L (46-116); ALT/SGPT < 9 U/L (7.0-40); AST/SGOT 18 U/L (<34); BILIRUBIN,TOTAL 0.5 MG/DL (0.3-1.2); BLOOD UREA NITROGEN 16 MG/DL (9-23); CALCIUM LEVEL 9.7 MG/DL (8.5-10.1); CARBON DIOXIDE LEVEL 27 MMOL/L (20-31); CHLORIDE LEVEL 106 MMOL/L (98-107); CHOLESTEROL LEVEL 136 MG/DL (<200); CHOLESTEROL RISK RATIO 3.09 (<5); CREATININE FOR GFR 0.77 MG/DL (0.55-1.30); GLOMERULAR FILTRATION RATE > 60.0 (>60); GLUCOSE, FASTING 85 MG/DL (60-100); LDL CHOLESTEROL 73.4 MG/DL (<100); NON-HDL-C 92 MG/DL; POTASSIUM SERUM 4.9 MMOL/L (3.5-5.1); SODIUM LEVEL 139 MMOL/L (136-145); TOTAL PROTEIN 7.4 G/DL (5.7-8.2); TRIGLYCERIDES LEVEL 93 MG/DL (<150)
[2022-09-22 11:15] LABS: BASO # 0.1 10^3/uL (0.0-0.2); BASO % 0.6 % (0.0-1.0); EOS # 0.1 10^3/uL (0.0-0.5); EOS % 1.3 % (0.0-3.0); HEMATOCRIT 43.3 % (36.0-47.0); HEMOGLOBIN 14.1 g/dl (12.0-15.5); LYMPH # 1.7 10^3/uL (1.5-5.0); MEAN CORPUSCULAR HEMOGLOBIN 28.7 pg (27.0-33.0); MEAN CORPUSCULAR HGB CONC 32.6 g/dl (32.0-36.5); MEAN CORPUSCULAR VOLUME 88.2 fl (80.0-96.0); MONO # 0.9 10^3/uL (0.0-0.8); MONO % 9.2 % (2.0-8.0); NEUTROPHILS # 6.7 10^3/uL (1.5-8.5); NEUTROPHILS % 70.5 % (36.0-66.0); PLATELET COUNT, AUTOMATED 366 10^3/uL (150-450); RED BLOOD COUNT 4.91 10^6/uL (4.00-5.40); WHITE BLOOD COUNT 9.5 10^3/uL (4.0-10.0)
[2022-09-22 11:31] LABS: HEMOGLOBIN A1c 4.9 % (4.0-6.0)
== END ==
LOC: M PLALAB 08:23
PROVIDERS: ATTEND Registered Nurse
DX: R53.83 Other fatigue (principal)

== ENCOUNTER → 2022-09-22 | Outpatient (CLI) | payer BC | LOC: M LABSMTC 09:01 | PROVIDERS: ATTEND Anesthesiology | DX: Z01.812 Encounter for preprocedural laboratory examination (principal); Z11.52 Encounter for screening for COVID-19 ==

== ENCOUNTER 2022-09-26 12:44 | Day surgery (SDC) | payer BC ==
[~2022-09-26] VITALS: Ht 157.5 cm; Wt 65.3 kg
[2022-09-26] MEDS ORDERED: LR 1,000 ML IV SCH ×2 (13:10→19:25)
[2022-09-26 13:17] LABS: HEMOGLOBIN 13.8 g/dl (12.0-15.5); MEAN CORPUSCULAR HEMOGLOBIN 29.4 pg (27.0-33.0); MEAN CORPUSCULAR HGB CONC 33.7 g/dl (32.0-36.5); MEAN CORPUSCULAR VOLUME 87.4 fl (80.0-96.0); PLATELET COUNT, AUTOMATED 362 10^3/uL (150-450); RED BLOOD COUNT 4.69 10^6/uL (4.00-5.40)
[2022-09-26 14:01] LABS: HCG, SERUM QUALITATIVE NEGATIVE (NEGATIVE)
[2022-09-26] MEDS ORDERED: BUPIVACAINE HCL 0.25% 10ML VIAL As Ordered ONE (17:56)
[2022-09-26] MEDS ORDERED: SILVER NITRATE APPLICATOR (1 = QTY 10) As Ordered ONE (17:56)
[2022-09-26] MEDS ORDERED: LIDOCAINE 2% 100MG/5ML SDV (FOR ANES.) As Ordered ONE (18:43)
[2022-09-26] MEDS ORDERED: propofoL 200 MG/20 ML VIAL As Ordered ONE (18:43)
[2022-09-26] MEDS ORDERED: SUGAMMADEX SODIUM 500 MG/5 ML VIAL (BRIDION) As Ordered ONE (18:43)
[2022-09-26] MEDS ORDERED: ACETAMINOPHEN 1000MG 100ML IV BAG As Ordered ONE (18:43)
[2022-09-26] MEDS ORDERED: METOCLOPRAMIDE INJ 10MG/2ML VIAL As Ordered ONE (18:43)
[2022-09-26] MEDS ORDERED: ROCURONIUM BROMIDE 50MG/5ML VIAL As Ordered ONE (18:43)
[2022-09-26] MEDS ORDERED: KETOROLAC 60MG 2ML VIAL As Ordered ONE (18:43)
[2022-09-26] MEDS ORDERED: MIDAZOLAM INJ 2MG/2ML VIAL As Ordered ONE (18:43)
[2022-09-26] MEDS ORDERED: ONDANSETRON 4MG 2ML VIAL As Ordered ONE (18:43)
[2022-09-26] MEDS ORDERED: fentaNYL 100 MCG/2 ML INJECTION As Ordered ONE (18:43)
[2022-09-26] MEDS ORDERED: oxyCODONE 5MG TAB PO PRN (19:25)
[2022-09-26] MEDS ORDERED: ONDANSETRON 4MG 2ML VIAL IV PRN (19:25)
[2022-09-26] MEDS ORDERED: METOCLOPRAMIDE INJ 10MG/2ML VIAL IV PRN (19:25)
[2022-09-26] MEDS ORDERED: fentaNYL 100 MCG/2 ML INJECTION IV PRN (19:25)
[2022-09-26] MEDS ORDERED: IBUP80TA PO (19:40)
[2022-09-26] MEDS ORDERED: PERC5TAB12 PO (19:41)
[2022-09-26] MEDS ORDERED: COLA100C5 PO (19:42)
[2022-09-26] MEDS: HYDROMORPHONE HCL 0.5 MG/ 0.5 ML SYRINGE IV PRN ×4 (19:53→20:11)
[2022-09-26 21:16] VITALS: BP 125/78
== END 2022-09-26 21:25 | disposition home or self-care (01) ==
LOC: M SDC 12:44
PROVIDERS: ATTEND Obstetrics & Gynecology
DX: Z30.2 Encounter for sterilization (principal); K58.8 Other irritable bowel syndrome; K21.9 Gastro-esophageal reflux disease without esophagitis; J45.909 Unspecified asthma, uncomplicated; Z79.899 Other long term (current) drug therapy
CPT/HCPCS: 36415; 58661; 84703; 85027; 86850; 86900; 86901; 88302; J0131; J1100; J1170; J1885; J2250; J2405; J2765; J3010; S0020